=== PATIENT | male | born 1955 | race Caucasian/White ===

== ENCOUNTER → 2021-02-20 | Outpatient (CLI) | payer MEDICARE, OTHER ==
[~2021-02-20] MED LIST: AMLODIPINE BESY10 MG PO; ASPIRIN EC81 MG PO; ELIQUIS 5 MG TAB5 MG PO; FENOFIBRATE134 MG PO; FUROSEMIDE20 MG PO; LASIX40 MG PO; LOPRESSOR 25 MG25 MG PO
== END ==
LOC: EXRD 14:17
DX: J44.9 Chronic obstructive pulmonary disease, unspecified (principal); R91.8 Other nonspecific abnormal finding of lung field
CPT/HCPCS: 71046

== ENCOUNTER 2021-02-26 11:53 | Inpatient (IN) | payer MEDICARE ==
[~2021-02-26] VITALS: Ht 170.2 cm; Wt 64.0 kg
[2021-02-26 12:26] LABS: HEMOGLOBIN 16.7 gm/dl (14.0-17.5); RED BLOOD COUNT 5.81 M/UL (4.20-5.50); WHITE BLOOD COUNT 13.3 K/UL (4.5-11.0)
[2021-02-26 12:48] LABS: BUN/CREATININE RATIO 16 (0-10)
[2021-02-27] MEDS ORDERED: FENOFIBRATE134 MG PO (04:13)
[2021-02-27] MEDS ORDERED: AMLODIPINE BESY10 MG PO (04:13)
[2021-02-27] MEDS ORDERED: FUROSEMIDE20 MG PO (04:14)
[2021-02-27 07:45] LABS: HEMOGLOBIN 14.8 gm/dl (14.0-17.5); RED BLOOD COUNT 5.42 M/UL (4.20-5.50); WHITE BLOOD COUNT 14.8 K/UL (4.5-11.0)
[2021-02-28 05:08] LABS: HBSAG SCREEN Negative (Negative); HEP A AB, IGM Negative (Negative); HEP B CORE AB, IGM Negative (Negative); HEP C VIRUS AB >11.0 (0.0-0.9)
[2021-02-28 07:08] LABS: HEMOGLOBIN 15.9 gm/dl (14.0-17.5); RED BLOOD COUNT 5.51 M/UL (4.20-5.50); WHITE BLOOD COUNT 13.3 K/UL (4.5-11.0)
[2021-03-01 04:49] LABS: HEMOGLOBIN 16.1 gm/dl (14.0-17.5); RED BLOOD COUNT 5.62 M/UL (4.20-5.50); WHITE BLOOD COUNT 12.3 K/UL (4.5-11.0)
[2021-03-02 03:49] LABS: HEMOGLOBIN 15.7 gm/dl (14.0-17.5); RED BLOOD COUNT 5.52 M/UL (4.20-5.50)
[2021-03-02 03:52] LABS: WHITE BLOOD COUNT 9.2 K/UL (4.5-11.0)
[2021-03-02] MEDS ORDERED: ASPIRIN EC81 MG PO (10:37)
[2021-03-02] MEDS ORDERED: ELIQUIS 5 MG TAB5 MG PO (10:37)
[2021-03-02] MEDS ORDERED: LOPRESSOR 25 MG25 MG PO (10:37)
[2021-03-02] MEDS ORDERED: LASIX40 MG PO (10:37)
--- NOTE | 2021-03-02 12:56 | NUR ---
FOLLOW UP APPOINTMENT FOR ONE MONTH SCHEDULED WITH DR. SNELL PER HER REQUEST.
== END 2021-03-02 13:06 | disposition home or self-care (01) | DRG 291 ==
LOC: ER1 11:53 → M/S 17:19 → CDU 17:19 → M/S 02-27 04:00
PROVIDERS: Emergency Medicine; Internal Medicine; Physician Assistant; ADMIT Internal Medicine
PROC: B24BZZ4 Ultrasonography of Heart with Aorta, Transesophageal (ICD-10-PCS; principal; 2021-02-26)
DX: I50.23 Acute on chronic systolic (congestive) heart failure (principal); J18.9 Pneumonia, unspecified organism; N17.9 Acute kidney failure, unspecified; Z20.822 Contact with and (suspected) exposure to COVID-19; K81.0 Acute cholecystitis; I47.2 Ventricular tachycardia; I48.91 Unspecified atrial fibrillation; N40.0 Benign prostatic hyperplasia without lower urinary tract symptoms; N18.9 Chronic kidney disease, unspecified; I27.20 Pulmonary hypertension, unspecified; F17.210 Nicotine dependence, cigarettes, uncomplicated; T50.2X5A Adverse effect of carbonic-anhydrase inhibitors, benzothiadiazides and other diuretics, initial encounter; E16.2 Hypoglycemia, unspecified; I25.5 Ischemic cardiomyopathy; E78.5 Hyperlipidemia, unspecified; I08.1 Rheumatic disorders of both mitral and tricuspid valves; B19.20 Unspecified viral hepatitis C without hepatic coma; E87.6 Hypokalemia; Z82.49 Family history of ischemic heart disease and other diseases of the circulatory system; I25.2 Old myocardial infarction; Z79.82 Long term (current) use of aspirin; Z79.01 Long term (current) use of anticoagulants
CPT/HCPCS: ECHO; 0240U; 36415; 36600; 71045; 76705; 78452; 80048; 80053; 80074; 81001; 82550; 82553; 82803; 83690; 83735; 83874; 83880; 84439; 84443; 84484; 85025; 85610; 85730; 93005; 93017; 93306; 96374; 96375; 99285; A9502; J0696; J1335; J1644; J1940; J2785; Q9967

== ENCOUNTER → 2021-04-13 | Outpatient (CLI) | payer MEDICARE | LOC: HEART 5 10:59 | DX: J44.9 Chronic obstructive pulmonary disease, unspecified (principal) | CPT/HCPCS: 94060; 94729 ==

== ENCOUNTER → 2021-04-17 | Outpatient (CLI) | payer MEDICARE, SELFPAY | LOC: EXRD 11:10 | DX: R94.4 Abnormal results of kidney function studies (principal) | CPT/HCPCS: 76775 ==

== ENCOUNTER 2021-12-14 16:59 | Emergency (ER) | payer MEDICARE ==
[2021-12-14 17:25] LABS: HEMOGLOBIN 15.8 gm/dl (14.0-17.5); RED BLOOD COUNT 5.35 M/UL (4.20-5.50); WHITE BLOOD COUNT 15.7 K/UL (4.5-11.0)
[2021-12-14 17:38] LABS: BUN/CREATININE RATIO 15 (0-10)
== END 2021-12-14 19:00 | disposition other institution (70) ==
LOC: ER1 16:59
PROVIDERS: Student in an Organized Health Care Education/Training Program
DX: S06.5X9A Traumatic subdural hemorrhage with loss of consciousness of unspecified duration, initial encounter (principal); S06.6X9A Traumatic subarachnoid hemorrhage with loss of consciousness of unspecified duration, initial encounter; S27.0XXA Traumatic pneumothorax, initial encounter; S42.032A Displaced fracture of lateral end of left clavicle, initial encounter for closed fracture; S22.42XA Multiple fractures of ribs, left side, initial encounter for closed fracture; S42.022A Displaced fracture of shaft of left clavicle, initial encounter for closed fracture; S40.212A Abrasion of left shoulder, initial encounter; S70.312A Abrasion, left thigh, initial encounter; S80.211A Abrasion, right knee, initial encounter; S30.811A Abrasion of abdominal wall, initial encounter; Z79.01 Long term (current) use of anticoagulants; V29.9XXA Motorcycle rider (driver) (passenger) injured in unspecified traffic accident, initial encounter; Y92.410 Unspecified street and highway as the place of occurrence of the external cause
CPT/HCPCS: 31500; 32551; 36600; 51702; 70450; 71045; 71260; 72125; 72170; 73030; 73552; 73562; 73610; 80053; 80307; 82009; 82803; 83605; 85025; 85610; 85730; 86850; 86900; 86901; 94002; 99285; G0480; J0330; J2250; J2704; J7168; Q9967